=== PATIENT | male | born 1990 | race Caucasian/White ===

== ENCOUNTER 2025-04-22 02:03 | Emergency (ER) | payer OTHER ==
[~2025-04-22] VITALS: Ht 190.5 cm; Wt 106.4 kg
[2025-04-22] MEDS ORDERED: QUET100T2 PO (02:17)
[2025-04-22] MEDS ORDERED: LEXA1TAB PO (02:18)
[2025-04-22 02:46] LABS: BASO # 0.1 10^3/uL (0.0-0.2); BASO % 0.8 % (0.0-1.0); EOS # 0.2 10^3/uL (0.0-0.5); EOS % 2.7 % (0.0-3.0); LYMPH # 2.4 10^3/uL (1.5-5.0); LYMPH % 35.7 % (24.0-44.0); MONO # 0.4 10^3/uL (0.0-0.8); MONO % 5.6 % (2.0-8.0); NEUTROPHILS # 3.6 10^3/uL (1.5-8.5); NEUTROPHILS % 55.0 % (36.0-66.0); PLATELET COUNT, AUTOMATED 229 10^3/uL (150-450)
[2025-04-22 03:08] LABS: INR 0.96
[2025-04-22 03:10] LABS: ETHYL ALCOHOL (ETHANOL) 0.184 % (0.000-0.010)
[2025-04-22 03:11] LABS: ALT/SGPT 57 U/L (7.0-40); AST/SGOT 45 U/L (<34); CALCIUM LEVEL 8.1 MG/DL (8.5-10.1); CARBON DIOXIDE LEVEL 33 MMOL/L (20-31); CHLORIDE LEVEL 100 MMOL/L (98-107); CK-MB VALUE MASS 3.2 NG/ML (<3.6); CPK CREATINE PHOSPHOKINASE 430 U/L (46-171); CREATININE FOR GFR 0.97 MG/DL (0.70-1.30); GLOMERULAR FILTRATION RATE > 90.0 (>60); MB/CK RELATIVE INDEX 0.74 (< OR =4); POTASSIUM SERUM 4.1 MMOL/L (3.5-5.1); SODIUM LEVEL 142 MMOL/L (136-145)
[2025-04-22] MEDS: OXAZEPAM 15MG CAP PO ONE (06:32)
[2025-04-22] MEDS ORDERED: ISOVUE-370 76% 100 ML VIAL As Ordered ONE (09:38)
[2025-04-22] MEDS ORDERED: OXAZ15CA4 PO (11:12)
[2025-04-22 11:31] VITALS: BP 143/87; TEMP 97; O2SAT 97
== END 2025-04-22 11:33 | disposition home or self-care (01) ==
LOC: M ED 02:03
DX: F10.10 Alcohol abuse, uncomplicated (principal); K92.2 Gastrointestinal hemorrhage, unspecified; Q63.1 Lobulated, fused and horseshoe kidney; I48.91 Unspecified atrial fibrillation; I10 Essential (primary) hypertension; F43.10 Post-traumatic stress disorder, unspecified; Z88.6 Allergy status to analgesic agent
CPT/HCPCS: 71045; 74174; 80048; 80076; 82077; 82550; 82553; 83690; 84484; 85025; 85610; 93005; 99284; Q9967